=== PATIENT | female | born 1990 | race Two or more races ===

== ENCOUNTER → 2022-01-05 | Emergency (ER) | payer OTHER ==
[~2022-01-05] VITALS: Ht 170.2 cm; Wt 70.3 kg
[~2022-01-05] MED LIST: BUPROPION XL150 MG PO
== END | disposition left against medical advice (07) ==
LOC: ER 01:28
DX: Z53.21 Procedure and treatment not carried out due to patient leaving prior to being seen by health care provider (principal)